=== PATIENT | female | born 1960 | race Caucasian/White ===

== ENCOUNTER 2018-08-23 14:12 | Emergency (ER) | payer OTHER ==
[~2018-08-23] VITALS: Ht 154.9 cm; Wt 115.7 kg
[~2018-08-23 14:12] MED LIST: IBUP600 PO; Norco 5-325 Ta1 EACH PO; Zofran4 MG PO
[2018-08-23 16:42] LABS: Source, Urine Clean Catch
[2018-08-23 16:46] LABS: Appearance, Urine Hazy (Clear); Bilirubin, Urine Neg (Neg); Blood, Urine 1+ (Neg); Color, Urine Yellow (P-Yellow); Glucose Qualitative, Urine Neg (Neg); Ketones, Urine Neg (Neg); Leukocyte Esterase, Urine 1+ (Neg); Nitrite, Urine Neg (Neg); Protein, Urine 1+ (Neg); Specific Gravity, Urine 1.025 (1.003-1.022); Urobilinogen, Urine NORM (Normal)
[2018-08-23] MEDS ORDERED: KETO10 PO (16:49)
[2018-08-23] MEDS ORDERED: HYDR1TAB94 PO (16:49)
[2018-08-23] MEDS ORDERED: ONDA4ODT MM (16:49)
[2018-08-23] MEDS ORDERED: Robaxin500 MG PO (16:49)
[2018-08-23 17:10] LABS: Bacteria Few /hpf; Red Blood Cells, Urine 0-2 /hpf (0-2); Squamous Epithelial Cells Few /hpf (Few)
== END 2018-08-23 17:15 | disposition home or self-care (01) ==
LOC: ER 14:12
PROVIDERS: Physician Assistant
DX: G89.29 Other chronic pain (principal); M54.5 Low back pain; Z88.5 Allergy status to narcotic agent; Z88.8 Allergy status to other drugs, medicaments and biological substances; F17.210 Nicotine dependence, cigarettes, uncomplicated
CPT/HCPCS: 81001; 87086; 96372; 99283-25; A9270-GY; J1100; J1885

== ENCOUNTER → 2019-02-06 | Outpatient (CLI) | payer OTHER ==
[~2019-02-06] MED LIST changes: +HYDR1TAB94 PO; +KETO10 PO; +ONDA4ODT MM; +Robaxin500 MG PO
[2019-02-11 16:06] LABS: HPV 16 Negative (Negative); HPV 18 Negative (Negative); HPV OTHER HR TYPES Negative (Negative)
== END | disposition home or self-care (01) ==
LOC: LAB SHORT 14:35 → LAB 14:35
PROVIDERS: Physician Assistant
DX: Z12.4 Encounter for screening for malignant neoplasm of cervix (principal)
CPT/HCPCS: 87624; G0145

== ENCOUNTER → 2019-03-04 | Outpatient (CLI) | payer OTHER | END | disposition home or self-care (01) | LOC: PLD 10:56 | DX: N95.0 Postmenopausal bleeding (principal) | CPT/HCPCS: 88305 ==

== ENCOUNTER → 2019-04-01 | Outpatient (CLI) | payer OTHER ==
[~2019-04-01] MED LIST changes: +Inderal40 MG PO
== END | disposition home or self-care (01) ==
LOC: LAB 09:43 → LAB SHORT 09:43 → LAB FUT 03-10 14:35
DX: E66.01 Morbid (severe) obesity due to excess calories (principal); Z68.42 Body mass index [BMI] 45.0-49.9, adult
CPT/HCPCS: 87338

== ENCOUNTER 2019-04-07 08:12 | Day surgery (SDC) | payer OTHER ==
[~2019-04-07] VITALS: Ht 154.9 cm; Wt 120.2 kg
--- NOTE | 2019-04-07 08:59 | NUR ---
Ambulatory in Day Surgery History, Chart, Medications and Allergies reviewed before start of procedure.Lungs clear T/O to Auscultation. Patient confirms NPO status and agrees with scheduled surgery. Patient States Post-Procedure ride home has been arranged.
--- NOTE | 2019-04-07 12:21 | NUR ---
PT TO STEP. SUSHILA PAD IN PLACE. SMALL AMOUNT OF RED DRAINAGE NOTED. C/O PAIN 6/10 TO VAGINAL AREA AND LOWER ABD CRAMPING.
--- NOTE | 2019-04-07 13:03 | NUR ---
NO CHANGE IN SUSHILA PAD. STATES PAIN LEVEL 3/10. ASKING FOR SCRIPT FOR ANTINAUSEA MED FOR HOME. CALL PLACED TO DR. HARPER. STATES NAUSEA MILD AT THE MOMENT. TOLERATING CRACKERS AND COFFEE.
--- NOTE | 2019-04-07 13:20 | NUR ---
WRITTEN AND VERBAL D/C INSTUCTIONS GIVEN TO PT WITH STATED UNDERSTANDING.
== END 2019-04-07 12:00 | disposition home or self-care (01) ==
LOC: ORSCMMR 08:12 → ORD 10:00 → ORSCMMR 10:00 → ORD 11:45 → ORSCMMR 12:00
PROVIDERS: Obstetrics & Gynecology
PROC: 0UBC8ZX Excision of Cervix, Via Natural or Artificial Opening Endoscopic, Diagnostic (ICD-10-PCS; principal; 2019-04-07 10:00)
PROC: 0UDB7ZX Extraction of Endometrium, Via Natural or Artificial Opening, Diagnostic (ICD-10-PCS; principal; 2019-04-07 10:00)
DX: N95.0 Postmenopausal bleeding (principal); N85.00 Endometrial hyperplasia, unspecified; G47.33 Obstructive sleep apnea (adult) (pediatric); Z79.899 Other long term (current) drug therapy
CPT/HCPCS: 88305; J1100; J1885; J2250; J2405; J2765; J3010; J7120

== ENCOUNTER → 2019-05-30 | Outpatient (CLI) | payer OTHER ==
[2019-05-31 14:01] LABS: Candida species (DNA Probe) Negative (NEGATIVE); G. vaginalis (DNA Probe) Positive (NEGATIVE); T. vaginalis (DNA Probe) Negative (NEGATIVE)
== END | disposition home or self-care (01) ==
LOC: LAB SHORT 11:30 → LAB 11:30
PROVIDERS: Obstetrics & Gynecology
DX: N76.0 Acute vaginitis (principal)
CPT/HCPCS: 87480; 87510; 87660

== ENCOUNTER → 2019-08-25 | Outpatient (CLI) | payer OTHER ==
[2019-08-31 13:07] LABS: COTININE <10.0 ng/mL (.); NICOTINE <10.0 ng/mL (.)
== END | disposition home or self-care (01) ==
LOC: LAB EV 10:00 → LAB SHORT 10:00
PROVIDERS: Physician Assistant
DX: Z01.812 Encounter for preprocedural laboratory examination (principal)
CPT/HCPCS: G0480

== ENCOUNTER 2020-01-19 05:54 | Day surgery (SDC) | payer OTHER ==
[~2020-01-19] VITALS: Ht 158 cm; Wt 100.5 kg
[~2020-01-19 05:54] MED LIST changes: +Inderal60 MG PO
--- NOTE | 2020-01-19 07:16 | NUR ---
Ambulatory in Day Surgery History, Chart, Medications and Allergies reviewed before start of procedure.Patient confirms NPO status and agrees with scheduled surgery. Patient reports completing Chlorhexadine shower X2 prior to admission to hospital.Surgical site prepped with 2% Chlorhexidine cloth wipe.
--- NOTE | 2020-01-19 11:43 | NUR ---
TORDAL GIVEN, PT DOESNT FEEL LIKE SHE COULD TAKE PAIN MEDS, GAVE HER A PIECE OF CHEESE, SIPPING ON WATER, UNTIL PT PULSE IS ABOVE 60 CONSISTENTLY, NOT WILLING TO GIVE DILUADID, WILL TRY TO GET PT TO TAKE ONE ROXICODONE AFTER SHE IS ABLE TO EAT THE CHEESE, PT DAUGHTER IS ON HER WAY, PT REQUESTED TO SEE HER, RN CALLED DAUGHTER FROM [place], PT DAUGHTER HAS LONG DISTANCE CELL NUMBER AND PT CANT CALL FROM ROOM, PT HAS CALL LIGHT AT BEDSIDE, AND IS MORE AWAKE AND ALERT, LESS DROWSY FROM WHEN FIRST GOT DOWN HERE.
--- NOTE | 2020-01-19 11:58 | NUR ---
BAND INSTRUMENT REPAIRER WILL COME SPEAK WITH PT THIS AFTERNOON ABOUT WHAT SHE CAN EAT OR EATS. PT DOESNT DO PROTEIN SHAKES ONLY EATS PROTIEN AND SOME BEANS. CURRENTLY EATING A PIECE OF CHEESE
--- NOTE | 2020-01-19 12:04 | NUR ---
PT HAS ABOUT 8 BLANKETS ON AND COMPLAINT OF COLD, TEMP IS NORMAL. PAIN IS CURRENTLY 1/10 EMR WONT LET ME DOCUMENT IT
--- NOTE | 2020-01-19 12:16 | NUR ---
PT SL, HOLDING CHEESE AND ICE WATER WITH NO PROBLEMS, WOULD LIKE TO GO HOME THIS EVENING
[2020-01-19] MEDS ORDERED: Percocet 5-3251 EACH PO (12:36)
--- NOTE | 2020-01-19 12:51 | NUR ---
DR HARPER IN TO SEE PT, PT PLANS TO GO HOME THIS EVENING, DR HARPER AWARE PT HAS A LOW PULSE MOSTLY BELOW 60, DR HARPER REPORTS THAT PT IS ON A BETA ABI
--- NOTE | 2020-01-19 13:05 | NUR ---
DC INSTRUCTIONS GONE OVER WITH PT, DENIES ANY QUESTIONS, ENCOUARGED TO CALL DR HARPER IF HAS ANY, PT VERBALIZED UNDERSTANDING
--- NOTE | 2020-01-19 14:41 | NUR ---
LT AC IV DCD, PT UP TO BATHROOM STEADY GAIT, OWN CLOTHS ON, NOT SURE PT VOIDED, PUT HAT IN TOILET, PT AWARE MAY GO HOME WHEN ABLE TO VOID IN HAT TOILET WATER HAD NO COLOR, AND PT URINE WAS A YELLOW
--- NOTE | 2020-01-19 14:53 | NUR ---
UP SITTING IN A CHAIR, AFTER ABLE TO VOID, WILL DC SECOND IV
--- NOTE | 2020-01-19 15:35 | NUR ---
PT ABLE TO VOID 300, SECOND IV IN RT HAND DCD CATH INTACT. RIDE IS ON HER WAY TO ADMINISTRATIVE RECEPTIONIST PATIENT
== END 2020-01-19 15:53 | disposition home or self-care (01) ==
LOC: ORD 05:54 → ORSCMMR 05:54 → ORD 07:30 → BC 10:58 → SURS 12:48 → BC 12:48 → SURS 12:51 → ORD 15:53 → BC 15:53 → ORSCMMR 15:53
PROVIDERS: Obstetrics & Gynecology
PROC: 0UT9FZZ Resection of Uterus, Via Natural or Artificial Opening With Percutaneous Endoscopic Assistance (ICD-10-PCS; principal; 2020-01-19 07:30)
PROC: 0UT7FZZ Resection of Bilateral Fallopian Tubes, Via Natural or Artificial Opening With Percutaneous Endoscopic Assistance (ICD-10-PCS; principal; 2020-01-19 07:30)
DX: N95.0 Postmenopausal bleeding (principal); R10.2 Pelvic and perineal pain; Z15.04 Genetic susceptibility to malignant neoplasm of endometrium; Q50.5 Embryonic cyst of broad ligament; I10 Essential (primary) hypertension; G47.33 Obstructive sleep apnea (adult) (pediatric); Z87.891 Personal history of nicotine dependence; E66.01 Morbid (severe) obesity due to excess calories; Z68.41 Body mass index [BMI] 40.0-44.9, adult; Z79.899 Other long term (current) drug therapy
CPT/HCPCS: 88307; J0330; J0690; J1885; J2250; J2405; J2704; J2710; J2765; J3010; J7120